=== PATIENT | female | born 1940 | race Caucasian/White ===

== ENCOUNTER 2018-10-25 12:26 | Inpatient (IN) | payer OTHER ==
[~2018-10-25] VITALS: Ht 160 cm; Wt 80.3 kg
[~2018-10-25 12:26] MED LIST: ALBUTEROL2.5 MG/31 INH; BIOTIN1000 MCG PO; BREO ELLIPTA 11 EACH INH; CARBAMAZEPINE200 M2 PO; CHEST CONGESTI400 MG PO; CLONAZEPAM 1 MG1 M1 PO; CLONIDINE0.1 PO; COZAAR 50 MG TA50 M2 PO; FETZIMA120 MG PO; FISH OIL 1,001000 M2 PO; IRON325 M1 PO; KLOR-CON 1010 MEQ PO; LIPITOR80 MG PO; MULTIVITAMINS1 EAC7 PO; OMEPRAZOLE20 M1 PO; PROPRANOLOL 20M20 M1 PO; QUETIAPINE FUM100 MG PO; SPIRIVA INH; VITAMIN B-12500 MCG PO; VITAMIN D1000 UNI1 PO; VITAMIN E400 UNIT PO
[2018-10-25 12:27] VITALS: BP 187/89
[2018-10-25 13:23] LABS: BASOPHILS 0.2 % (0.0-2.0); EOSINOPHILS 1.9 % (0.0-3.0); HEMATOCRIT 32.4 % (37.0-47.0); HEMOGLOBIN 10.8 gm/dL (12.0-15.0); LYMPHOCYTES 19.7 % (24.0-44.0); MCH 29.4 pg (26.0-34.0); MCHC 33.2 g/dL (28.0-37.0); MCV 88.5 fL (80.0-100.0); MONOCYTES 8.6 % (1.0-8.0); PLATELET COUNT 262 thou/uL (150-400); POLYS 69.6 % (36.0-66.0); RBC 3.67 mil/uL (4.20-5.00); RDW 13.6 % (10.5-14.5); WBC 7.1 thou/uL (4.0-11.0)
[2018-10-25 13:28] LABS: ANION GAP 4 mmol/L (7-16); BUN 18 mg/dL (7-18); CALCIUM 10.5 mg/dL (8.5-10.1); CHLORIDE 101 mmol/L (98-107); CO2 36 mmol/L (21-32); CREATININE 1.1 mg/dL (0.6-1.0); GLUCOSE 126 mg/dL (74-106); POTASSIUM 3.8 mmol/L (3.5-5.1); SODIUM 141 mmol/L (136-145)
[2018-10-25 13:36] LABS: ALBUMIN 3.5 g/dL (3.4-5.0); MAGNESIUM 1.7 mg/dL (1.8-2.4); SGOT 23 U/L (15-37); SGPT 27 U/L (30-65); TOTAL BILIRUBIN 0.2 mg/dL (<0.1-1.0); TOTAL PROTEIN 8.4 g/dL (6.4-8.2); TROPONIN-I <0.06 ng/mL (<0.06)
--- NOTE | 2018-10-25 13:41 | EKG ---
[place] [address] [facility] [place] [address] ELECTROCARDIOGRAM REPORT Name: YUVAL THORNE [facility] #: [id number] Admission: 10/25/18 Attend Phys: Discharge: Date of : 38 Report #: [id number] REPORT FOR: //name// [facility] ED Test Date: 2018-10-25 Test Time: 12:47:24 Pat Name: YUVAL THORNE Department: Room: Gender: F Sanipractic Physician: AIDA : 1940 Requested By: Misbah Welch Order Number: [id number] MD: Dom Paige Measurements Intervals [place] Rate: 76 P: SD: QRS: -55 QRSD: 159 T: 111 QT: 411 QTc: 463 Interpretive Statements Sinus rhythm with frequent PACs Left bundle branch block Compared to ECG 08/28/2017 13:30:55 Electronically Signed On 10-25-2018 13:41:22 [employer]ASTEW[employer] DESIGN ENGINEER by Dom Paige [email or web address] <ELECTRONICALLY SIGNED> By: Dom Paige MD 10/25/18 1341 1247 1247 Dom Paige MD /OSMANI
[2018-10-25 14:26] LABS: URINE BILIRUBIN NEGATIVE (Negative); URINE BLOOD NEGATIVE (Negative); URINE CLARITY CLEAR; URINE COLOR YELLOW; URINE GLUCOSE-RANDOM* NEGATIVE (Negative); URINE KETONES NEGATIVE (Negative); URINE NITRITE-REFLEX NEGATIVE (Negative)
[2018-10-25 14:27] LABS: URINE LEUKOCYTES-REFLEX NEGATIVE (Negative); URINE PROTEIN (DIPSTICK) TRACE (Negative); URINE UROBILINOGEN 0.2 E.U./dl (0.2-1.0)
[2018-10-25] MEDS ORDERED: CLONAZEPAM 1 MG1 M1 PO (14:40)
[2018-10-25] MEDS ORDERED: LASIX 40 MG TAB40 M2 PO (14:43)
[2018-10-25] MEDS ORDERED: VITAMINC500 PO (14:44)
[2018-10-25] MEDS ORDERED: COLACE CLEAR50 MG PO (14:44)
[2018-10-25 15:32] VITALS: BP 148/94
[2018-10-25 15:35] VITALS: BP 149/64
--- NOTE | 2018-10-25 15:40 | NUR ---
PER CRUZ, NURSE IS AT LUNCH AND THE ROOM IS NOT CLEAN; CRUZ WILL HAVE THE NURSE CALL ME BACK
[2018-10-25 19:00] VITALS: BP 147/81
--- NOTE | 2018-10-25 19:31 | NUR ---
ASSUMED CARE AT 1700, PART OF ADMISSION AND MED REC COMPLETED. PATIENT HAS HOME MEDS THAT WAS SENT DOWN TO THE PHARMACY. PATIENT WATNS BELONGINGS TO BE KEPT WITH SECURITY. NIGHT NURSE AWARE OF THIS. VSS.
--- NOTE | 2018-10-26 03:50 | NUR ---
ASSUMED CARE AT 1900, ADMISSION ASSESSMENT COMPLETED. PT REPORTS CHRONIC CONSTIPATION BUT DENIES NAUSEA, LAST BM ON THURSDAY OR THURSDAY. CHRONIC 2.5L NC O2, DENIES SOB, REPORTS RT TREATMENTS HELPING HER CONGESTION. CHRONIC L KNEE PAIN, DID NOT WANT ANY PAIN MEDS. CONCERNED ABOUT NOT RECEIVING HER 1700 MEDS; WENT THROUGH HER HOME LIST WITH HER, OBTAINED ORDERS TO RESUME MEDS; EXPLAINED SOME MEDS WOULD NOT RESUME UNTIL AM. EDUCATED TO CALL FOR HELP NEEDED. PER PT, SHE GETS AROUND HOUSE WITHOUT AIDES, ONLY USES A WALKER WHEN SHE IS OUT OF THE HOUSE. 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 NO OTHER CONCERNS, WILL CONTINUE TO MONITOR.
[2018-10-26 04:58] VITALS: BP 113/54
[2018-10-26 05:28] LABS: HEMATOCRIT 29.6 % (37.0-47.0); HEMOGLOBIN 9.8 gm/dL (12.0-15.0); MCH 29.8 pg (26.0-34.0); MCHC 33.2 g/dL (28.0-37.0); MCV 89.8 fL (80.0-100.0); RBC 3.3 mil/uL (4.20-5.00); RDW 13.7 % (10.5-14.5); WBC 6.9 thou/uL (4.0-11.0)
[2018-10-26 06:23] LABS: CALCIUM 9.8 mg/dL (8.5-10.1); POTASSIUM 3.8 mmol/L (3.5-5.1)
[2018-10-26 07:30] VITALS: BP 151/82
[2018-10-26 12:41] VITALS: BP 151/82
[2018-10-26 16:08] VITALS: BP 150/69
--- NOTE | 2018-10-26 16:16 | NUR ---
REPORT GIVEN TO [facility] PATIENT TO MOVE SOON THEY HAVE ROOM CLEANED .
--- NOTE | 2018-10-26 16:27 | NUR ---
INITIAL ASSESSMENT: Pt evaluated for d/c planning needs. Reviewed chart and spoke with nurse and pt. Pt is alert and oriented. Pt states she lives alone in house and was independent with ADL's. Pt said she has mental health issues and has [facility] hospice case manager. CM assists with grocery shopping and errands. Pt has home 02, walker and nebulizer at home. Pt states she has sleep apnea, but does not the restrictions of CPAP or BiPAP. Pt has no power at home. Pt said her son is checking on power on a regular basis. Pt said she is estranged from her daughter. Pt plans on returning home on d/c from hospital. Will remain available to assist as needed.
--- NOTE | 2018-10-26 18:22 | NUR ---
PT TRANSRERRED TO SENIOR SUITES AT THIS TIME, ALL BELONGINGS PACKED AND SENT WITH PATIENT. PT WANTED TO GO GO HOME DR WILDE CALLED HE STATED HE WOULD DISCHARGE TOMMORROW HE HAS LEFT HOSPITAL THAT IF PATIENT INSISTED ON DISCHARGE WOULD HAVE TO BE AMA
--- NOTE | 2018-10-26 18:40 | NUR ---
RECEIVED PT FROM AT 1830. PT ALERT/ORIENTED X4. ORIENTED TO SURROUNDINGS AND CALL LIGHT PLACED WITHIN REACH.
[2018-10-26 20:54] VITALS: BP 170/88
[2018-10-27 02:55] VITALS: BP 170/88
--- NOTE | 2018-10-27 04:56 | NUR ---
PATIENT ALERT AND ORIENTED X4. DENIES PAIN. ACCUCHECK 171, HAS NO INSULIN COVERAGE. PATIENT NOT A DIABETIC. EXPLANED TO HER THE REASON FOR GETTING HER BLOOD SUGAR CHECKED. SLEPT MOST OF NIGHT.
[2018-10-27 10:00] VITALS: BP 113/79
[2018-10-27 12:12] VITALS: BP 113/79
== END 2018-10-27 14:45 | disposition home or self-care (01) | DRG 190 ==
LOC: ER 12:26 → 4E 14:13 → EROBS 14:13 → 4E 16:35 → SICU 10-26 18:33 → ENTRNSPT 10-27 14:30 → EDTRNSPTSTS 10-27 14:32 → SICU 10-27 14:45
PROVIDERS: Emergency Medicine; Nurse Practitioner Family; ADMIT Hospitalist
DX: J44.1 Chronic obstructive pulmonary disease with (acute) exacerbation (principal); E43 Unspecified severe protein-calorie malnutrition; J96.11 Chronic respiratory failure with hypoxia; I10 Essential (primary) hypertension; E78.00 Pure hypercholesterolemia, unspecified; F41.9 Anxiety disorder, unspecified; K21.9 Gastro-esophageal reflux disease without esophagitis; D64.9 Anemia, unspecified; E83.42 Hypomagnesemia; E53.8 Deficiency of other specified B group vitamins; F17.210 Nicotine dependence, cigarettes, uncomplicated; T69.8XXA Other specified effects of reduced temperature, initial encounter; X58.XXXA Exposure to other specified factors, initial encounter; R63.4 Abnormal weight loss; Z68.31 Body mass index [BMI] 31.0-31.9, adult; Y93.89 Activity, other specified; Y92.89 Other specified places as the place of occurrence of the external cause; Y99.8 Other external cause status; Z79.51 Long term (current) use of inhaled steroids; Z99.81 Dependence on supplemental oxygen; Z79.899 Other long term (current) drug therapy; Z88.8 Allergy status to other drugs, medicaments and biological substances; Z91.041 Radiographic dye allergy status; X31.XXXA Exposure to excessive natural cold, initial encounter
CPT/HCPCS: 10084; 15002

== ENCOUNTER → 2021-11-25 | Outpatient (CLI) | payer OTHER ==
[~2021-11-25] MED LIST changes: +COLACE CLEAR50 MG PO; +LASIX 40 MG TAB40 M2 PO; +VITAMINC500 PO
== END ==
LOC: SJCVCIMAG 15:54
PROVIDERS: ATTEND Internal Medicine
DX: I08.0 Rheumatic disorders of both mitral and aortic valves (principal); I13.0 Hypertensive heart and chronic kidney disease with heart failure and stage 1 through stage 4 chronic kidney disease, or unspecified chronic kidney disease; I50.20 Unspecified systolic (congestive) heart failure; E11.22 Type 2 diabetes mellitus with diabetic chronic kidney disease; N18.9 Chronic kidney disease, unspecified; D63.1 Anemia in chronic kidney disease; M85.88 Other specified disorders of bone density and structure, other site; E78.5 Hyperlipidemia, unspecified; I42.9 Cardiomyopathy, unspecified; K21.9 Gastro-esophageal reflux disease without esophagitis